=== PATIENT | female | born 1995 | race Caucasian/White ===

== ENCOUNTER 2016-06-03 13:23 | Emergency (ER) | payer BC ==
[~2016-06-03] VITALS: Ht 167.6 cm; Wt 56.1 kg
[2016-06-03 13:32] VITALS: TEMP 36.7; Ht 167.6 cm; Wt 56.1 kg
[2016-06-03] MEDS ORDERED: MoRPHine SULFATE 10 MG/ML CARP/VIAL IV STA (15:12)
[2016-06-03] MEDS ORDERED: ONDANSETRON INJ 2 MG/ML 2 ML VIAL IV STA (15:12)
[2016-06-03] MEDS ORDERED: SODIUM CHLORIDE 0.9% 1000ML 1,000 ML IV STA ×2 (15:12)
[2016-06-03] MEDS ORDERED: MoRPHine SULFATE 4 MG/ML 1 ML CARP\\VIAL IV PRN (15:15)
[2016-06-03] MEDS ORDERED: IBUP-1050 PO (15:36)
[2016-06-03] MEDS ORDERED: BIOTCAP2 PO (15:36)
[2016-06-03] MEDS ORDERED: MULT-513 PO (15:36)
[2016-06-03] MEDS ORDERED: CALC-51 PO (15:36)
[2016-06-03 15:39] LABS: URINE APPEARANCE CLEAR (CLEAR); URINE BILIRUBIN NEG (NEG); URINE COLOR YELLOW; URINE NITRITE NEG (NEG); URINE SPECIFIC GRAVITY 1.015 (1.000-1.030); UROBILINOGEN NEG (NEG)
[2016-06-03 15:41] LABS: MANUAL MICROSCOPIC REQUIRED? NO; REVIEW REQ? NO; SULFASALICYLIC ACID NEG (NEG)
[2016-06-03 15:41] LABS: BASO % 0.1 %; BASO ABS # 0.01 K/uL (0-0.2); COMPLETE YES; EOS % 0.1 %; HEMATOCRIT 37.6 % (37-47); IG% 0.1 %; LYMPH % 15.5 %; LYMPH ABS # 1.25 K/uL (1.2-3.4); MEAN CORPUSCULAR HEMOGLOBIN 30.9 pg (25-34); MEAN CORPUSCULAR HGB CONC 34.3 g/dl (32-36); MEAN PLATELET VOLUME 10.3 fL (7.4-10.4); MONO % 10.1 %; NEUT % 74.1 %; PLATELET COUNT 223 K/uL (130-400); RED BLOOD COUNT 4.18 M/uL (4.2-5.4); WHITE BLOOD COUNT 8.04 K/uL (4.8-10.8)
[2016-06-03] MEDS ORDERED: OPTIRAY 320 IV PRN (16:00)
[2016-06-03 16:02] LABS: BUN/CREATININE RATIO 17.3 (10-20); CALCIUM 9.2 mg/dl (8.5-10.1); CREATININE 0.64 mg/dl (0.60-1.20)
[2016-06-03 16:03] LABS: PREG INTERNAL NEGATIVE QC NEG CLEAR BACKGROUND; PREG INTERNAL POSITIVE QC POS CONTROL LINE
[2016-06-03 16:05] LABS: ALB/GLOB RATIO 1.3 (0.9-2)
--- NOTE | 2016-06-03 16:41 | DIAGNOSTIC IMAGING REPORT ---
ABDOMEN AND PELVIS CT WITH IV CONTRAST CT DOSE: 293.93 mGy.cm HISTORY: Pain eval lower abdominal pain TECHNIQUE: Multiaxial CT images of the abdomen and pelvis were performed following the use of intravenous contrast. COMPARISON STUDY: None. FINDINGS: Lung bases are clear. Liver spleen and pancreas are unremarkable. Kidneys negative for hydronephrosis. The enhance uniformly. Bowel pattern is nonobstructive. The appendix is seen only segmentally and appears to be unremarkable. There is a 2 cm partially collapsed right ovarian cyst. There is a small amount of fluid surrounding the right ovary as well as in the pelvic cul-de-sac. Partial cyst rupture is considered. Bladder is midline. IMPRESSION: 1. The bowel pattern appears to be unremarkable. Visualization of the appendix is limited, but appears unremarkable as well. 2. Absence of oral contrast severely degrades ability to evaluate the bowel lumen. 3. 2 cm right ovarian cyst with a small amount of surrounding fluid as well as a small amount of fluid within pelvic cul-de-sac. 4. This potentially indicates a partial right ovarian cyst rupture Electronically signed by: Terence Birch M.D. 06/03/2016 4:40 PM Dictated Date/Time: 06/03/2016 4:34 PM
--- NOTE | 2016-06-03 17:18 | EMERGENCY ROOM VISIT NOTE ---
History First contact with patient: 15:02 Chief Complaint: ABDOMINAL PAIN Stated Complaint: SEVERE LOWER ABD. PAIN Nursing Triage Summary: pt reports lower abd started saturday night. today sx worse. denies any n/v .has diarrhea History of Present Illness Patient is an otherwise healthy 20-year-old white female who presents to the emergency department for evaluation of lower abdominal pain 3-1/2 days. She states she noticed the discomfort on Saturday evening. She describes a constant, cramping pain across her entire lower pelvis. It kept her from sleeping Saturday evening. She tried taking ibuprofen which helped slightly but only provided her with short-term relief. She notes the pain is a little bit better during the day, but worse again at night. She initially thought it was cramps because she was expecting her menses to start today. She also thought it could be constipation. She tried Tylenol, ibuprofen, eating prunes and other interventions for constipation, without relief. She states that today when she woke up the pain was much worse. It was coming in waves and felt more sharp. She denies any radiation to her back or flank. She is unable to take comfortable in any position. She presently rates it an 8/10. She denies any nausea or vomiting, but admits to decreased appetite due to the pain. She denies any dysuria, frequency, urgency or hematuria. She reports 2 loose, watery bowel movements today. She denies melena. She has not felt feverish but has had intermittent sweats. She is sexually active, last intercourse was the day prior to the onset of her discomfort. She denies any vaginal discharge. No discomfort with intercourse. She denies any significant gynecologic history. She went to [facility] today and they directed her to the emergency department for evaluation. Review of Systems Review of systems as per HPI. All other systems reviewed were negative. 10 systems reviewed. Past Medical/Surgical History Medical Problems: (1) No Known Active Medical Problems Social History Smoking Status: Never Smoker Alcohol Use: occasionally Housing Status: lives with roommate Occupation Status: [employer] student Current/Historical Medications Scheduled Biotin (Biotin 5000), 1 CAP PO DAILY Calcium Carbonate-Vitamin D (Calcium), 1 TAB PO DAILY Ibuprofen (Advil), 400-600 MG PO Q6H Multivitamins/Minerals (Mvi With Minerals), 1 TAB PO DAILY Scheduled PRN Hydrocodone/Acetaminophen 5MG/325MG (Miles 5MG/325MG), 1-2 TABLETS PO Q4 PRN for Pain Allergies Coded Allergies: No Known Allergies (Unverified , 06/03/16) Physical Exam Vital Signs Date Time Temp Pulse Resp B/P Pulse Ox O2 Delivery O2 Flow Rate FiO2 06/03/16 17:42 70 16 116/60 100 Room Air 06/03/16 15:40 69 16 119/79 100 Room Air 06/03/16 13:32 36.7 83 18 135/90 99 Room Air Physical Exam CONSTITUTIONAL: Patient is a thin, uncomfortable 20-year-old white female who is awake and alert and in moderate distress due to her discomfort. EYES: Pupils equal, round, reactive to light and accommodation. EOMs intact without nystagmus. Sclera are anicteric. ENT: Tympanic membranes intact, with normal landmarks. External canals are clear. Oral and nasopharynx are clear. Mucous membranes are moist, no lesions , tongue and gums appear normal. NECK: Supple without lymphadenopathy. No thyromegaly. No meningeal signs. Full active range of motion without discomfort. CARDIOVASCULAR: Regular rate and rhythm, with normal S1 and S2, no murmur or gallop or rub is heard. No carotid bruits auscultated. No JVD. Peripheral pulses easy to palpable. RESPIRATORY: Breath sounds equal and clear to auscultation without wheezes, rales, or rhonchi heard. Full and equal chest expansion without accessory muscle use or retractions. GI: Bowel sounds are present. Abdomen is soft, scaphoid, tender to percussion on palpation across the lower abdomen. No guarding or rebound. No organomegaly. No pulsatile masses. MUSCULOSKELETAL: Full range of motion of extremities x 4 with good strength. No cyanosis, edema, joint tenderness or swelling. No deformity. INTEGUMENTARY: No lesions or rash, normal skin turgor. NEUROLOGICAL: Alert, oriented, and cooperative. Cranial nerves, sensation and strength grossly intact. Pupils round, equal, and react to light, EOMs are full. LYMPH: No lymphadenopathy. Medical Decision & Procedures ER Provider Diagnostic Interpretation: ABDOMEN AND PELVIS CT WITH IV CONTRAST CT DOSE: 293.93 mGy.cm HISTORY: Pain eval lower abdominal pain TECHNIQUE: Multiaxial CT images of the abdomen and pelvis were performed following the use of intravenous contrast. COMPARISON STUDY: None. FINDINGS: Lung bases are clear. Liver spleen and pancreas are unremarkable. Kidneys negative for hydronephrosis. The enhance uniformly. Bowel pattern is nonobstructive. The appendix is seen only segmentally and appears to be unremarkable. There is a 2 cm partially collapsed right ovarian cyst. There is a small amount of fluid surrounding the right ovary as well as in the pelvic cul-de-sac. Partial cyst rupture is considered. Bladder is midline. IMPRESSION: 1. The bowel pattern appears to be unremarkable. Visualization of the appendix is limited, but appears unremarkable as well. 2. Absence of oral contrast severely degrades ability to evaluate the bowel lumen. 3. 2 cm right ovarian cyst with a small amount of surrounding fluid as well as a small amount of fluid within pelvic cul-de-sac. 4. This potentially indicates a partial right ovarian cyst rupture Laboratory Results 06/03/16 15:32 Red Blood Count 4.18, Mean Corpuscular Volume 90.0, Mean Corpuscular Hemoglobin 30.9, Mean Corpuscular Hemoglobin Concent 34.3, Mean Platelet Volume 10.3, Neutrophils (%) (Auto) 74.1, Lymphocytes (%) (Auto) 15.5, Monocytes (%) (Auto) 10.1, Eosinophils (%) (Auto) 0.1, Basophils (%) (Auto) 0.1, Neutrophils # (Auto ) 5.95, Lymphocytes # (Auto) 1.25, Monocytes # (Auto) 0.81, Eosinophils # (Auto ) 0.01, Basophils # (Auto) 0.01 06/03/16 15:32 Test 06/03/16 15:30 06/03/16 15:32 Urine Color YELLOW Urine Appearance CLEAR (CLEAR) Urine pH 8.0 (4.5-7.5) Urine Specific [place] 1.015 (1.000-1.030) Urine Protein NEG (NEG) Urine Glucose (UA) NEG (NEG) Urine Ketones NEG (NEG) Urine Occult Blood NEG (NEG) Urine Nitrite NEG (NEG) Urine Bilirubin NEG (NEG) Urine Urobilinogen NEG (NEG) Urine Leukocyte Esterase NEG (NEG) White Blood Count 8.04 K/uL (4.8-10.8) Red Blood Count 4.18 M/uL (4.2-5.4) Hemoglobin 12.9 g/dL (12.0-16.0) Hematocrit 37.6 % (37-47) Mean Corpuscular Volume 90.0 fL (80-100) Mean Corpuscular Hemoglobin 30.9 pg (25-34) Mean Corpuscular Hemoglobin Concent 34.3 g/dl (32-36) Platelet Count 223 K/uL (130-400) Mean Platelet Volume 10.3 fL (7.4-10.4) Neutrophils (%) (Auto) 74.1 % Lymphocytes (%) (Auto) 15.5 % Monocytes (%) (Auto) 10.1 % Eosinophils (%) (Auto) 0.1 % Basophils (%) (Auto) 0.1 % Neutrophils # (Auto) 5.95 K/uL (1.4-6.5) Lymphocytes # (Auto) 1.25 K/uL (1.2-3.4) Monocytes # (Auto) 0.81 K/uL (0.11-0.59) Eosinophils # (Auto) 0.01 K/uL (0-0.5) Basophils # (Auto) 0.01 K/uL (0-0.2) RDW Standard Deviation 42.3 fL (36.4-46.3) RDW Coefficient of Variation 13.0 % (11.5-14.5) Immature Granulocyte % (Auto) 0.1 % Immature Granulocyte # (Auto) 0.01 K/uL (0.00-0.02) Anion Gap 10.0 mmol/L (3-11) Est Creatinine Clear Calc Drug Dose 122.1 ml/min Estimated GFR () 146.8 Estimated GFR (Non- 126.7 BUN/Creatinine Ratio 17.3 (10-20) Calcium Level 9.2 mg/dl (8.5-10.1) Total Bilirubin 0.5 mg/dl (0.2-1) Aspartate Amino Transf (AST/SGOT) 14 U/L (15-37) Alanine Aminotransferase (ALT/SGPT) 17 U/L (12-78) Alkaline Phosphatase 41 U/L (45-117) Total Protein 7.5 gm/dl (6.4-8.2) Albumin 4.3 gm/dl (3.4-5.0) Globulin 3.2 gm/dl (2.5-4.0) Albumin/Globulin Ratio 1.3 (0.9-2) Lipase 92 U/L (73-393) Human Chorionic Gonadotropin, Qual NEG (NEG) Medications Administered Medications (Trade) Dose Ordered Sig/Cherrie Route Start Time Stop Time Status Last Admin Dose Admin Sodium Chloride (Nss 1000ml) 1,000 ml @ 999 mls/hr Q1H1M STAT IV 06/03/16 15:12 06/03/16 16:12 DC 06/03/16 15:12 999 MLS/HR Ondansetron HCl (Zofran Inj) 4 mg NOW STAT IV 06/03/16 15:12 06/03/16 15:21 DC 06/03/16 15:38 4 MG Morphine Sulfate (MoRPHine SULFATE INJ) 6 mg NOW STAT IV 06/03/16 15:12 06/03/16 15:21 DC 06/03/16 15:38 6 MG Acetaminophen/ Hydrocodone Bitart (Miles 5/325mg Home Pack) 1 homepack UD ONCE PO 06/03/16 17:30 06/03/16 17:31 DC 06/03/16 17:30 1 HOMEPACK ED Course The patient was seen and assessed as above. She has no old records at this facility for review. IV access was obtained and she was hydrated with normal saline solution. She received 6 mg IV and Zofran 4 mg IV with good relief of her pain. Urine dip was obtained and was clear. test was negative. Serum hCG was also negative. CBC, CMP and lipase were ordered. Laboratory studies revealed a normal white count and H&H. Electrolytes are within normal limits. Renal functions are normal. Liver functions are not elevated and lipase is within normal limits. Urinalysis was completely clean without signs of infection. No hematuria. Given the patient's diffuse lower abdominal pain, worsening after several days, CT scan of the abdomen pelvis with IV contrast was ordered. The appendix appeared normal. She has findings consistent with a collapsing and suspected recent rupture of a 2 cm right ovarian cyst. The patient was reassessed. She reported good relief of her discomfort with the IV morphine. All laboratory and diagnostic imaging studies were discussed with her. Conservative care measures were discussed. She was encouraged to follow-up with gynecology for further care and evaluation of the ovarian cyst. The patient rated her discomfort a 0/10 at discharge. Differential diagnoses entertained included UTI, pyelonephritis, renal colic, appendicitis, , ectopic , dysmenorrhea, ovarian cyst, ruptured ovarian cyst, tubo-ovarian abscess, PID, among others. Medical Decision See ED course Impression Primary Impression: Right ovarian cyst Additional Impression: Ruptured ovarian cyst Departure Information Prescriptions Hydrocodone/Acetaminophen 5MG/325MG (Miles 5MG/325MG) Tab 1-2 TABLETS PO Q4 Y for Pain, #10 TAB For Initial Treatment Prov: Yolette James PA 06/03/16 Referrals No Doctor, Assigned (PCP) Alice Peguero M.D. [facility] [employer] Papo Morel M.D. [facility] Reno Cooley M.D. [facility] [employer] Patient Instructions [facility] Additional Instructions DO NOT drive, drink alcohol, operate machinery, or perform dangerous activities today. You were given medications in the ER that can affect your ability to safely function or operate a vehicle. Hydrocodone/Acetaminophen (Miles) 5/325 mg: Take 1-2 pills every four hours for breakthrough pain. Avoid alcohol, operating machinery or dangerous equipment, working on ladders or roofs, DRIVING, or situations where being under the influence may be dangerous. It is recommended to use an [id number]-[id number]-[id number] stool softener such as Colace, 100mg twice daily while taking this medication to avoid constipation. Ibuprofen(Motrin, Advil) may be used for fever or pain. Use 600mg every six hours as needed. Take with food. Avoid using more than 2400mg in a 24 hour period. Do not use 2400mg per day for more than three consecutive days without physician direction. Prolonged inappropriate use can lead to stomach upset or ulcers. This is available over the counter and typically comes in 200mg tablets. Read all the package inserts or medication information paperwork provided. If you have any questions or concerns call your primary provider, pharmacist or the ER for assistance. Diet and activity as tolerated. Continue current medications. Return to the ER immediately for worsening or persistent abdominal pain, vomiting, fevers, chest pains, difficulty breathing, black or bloody stools, worsening of your condition, or as needed. Follow up with gynecology for further care and evaluation of your ovarian cyst. Problem Qualifiers
[2016-06-03] MEDS ORDERED: HYDR-5688 PO (17:23)
[2016-06-03] MEDS ORDERED: NORCO 5/325MG HOME PACK PO ONE (17:30)
[2016-06-03 17:42] VITALS: BP 116/60; PULSE 70; O2SAT 100
== END 2016-06-03 17:44 | disposition home or self-care (01) ==
LOC: C.EDB 13:25 → C.EDC 17:44
DX: N83.201 Unspecified ovarian cyst, right side (principal)